=== PATIENT | male | born 1995 | race Hispanic/Latino ===

== ENCOUNTER 2018-11-14 20:00 | Emergency (ER) | payer SELFPAY ==
[2018-11-14] MEDS ORDERED: Bacitracin 500 Units/gm Oint Foilpak UD ONE (20:53)
--- NOTE | 2018-11-14 21:21 | C.PDOC ---
History Of Present Illness Patient is a 23 year old male who presents to the ED for intermittent nose bleeds for the past 5 days. He does not have a current nosebleed. Patient denies any cocaine use, nose picking, or other medical complaints at the present moment. Time Seen by Provider: 11/14/18 20:17 Chief Complaint (Nursing): ENT Problem History Per: Patient History/Exam Limitations: None Onset/Duration Of Symptoms: Days (5) Current Symptoms Are (Timing): Gone Past Medical History Reviewed: Historical Data, Nursing Documentation, Vital Signs Vital Signs: Last Vital Signs Temp 99.0 F 11/14/18 20:07 Pulse 74 11/14/18 20:07 Resp 16 11/14/18 20:07 BP 134/65 11/14/18 20:07 Pulse Ox 97 11/14/18 20:07 - Medical History PMH: Migraine Surgical History: No Surg Hx - [facility] Procedures APPLICATION OF SPLINT (10/10/13) TETANUS TOXOID ADMINIST (10/10/13) Family History: States: No Known Family Hx - Social History Hx Tobacco Use: No Hx Alcohol Use: Yes Hx Substance Use: No - Immunization History Hx Tetanus Toxoid Vaccination: No Hx Influenza Vaccination: No Hx Pneumococcal Vaccination: No Review Of Systems ENT: Positive for: Nose Discharge (blood) Physical Exam - Physical Exam Appears: Non-toxic, No Acute Distress Skin: No Rash Nose: Other (dried blood in anterior left nare ) Neurological/Psych: Oriented x3 ED Course And Treatment O2 Sat by Pulse Oximetry: 97 (on RA) Pulse Ox Interpretation: Normal Medical Decision Making Medical Decision Making: Nose was cleaned up. Appears irritated. Bacitracin applied. Patient instructed how to pinch nose to stop nose bleeding. Disposition Counseled Patient/Family Regarding: Diagnosis, Need For Followup - Disposition Referrals: Rashad Wyatt MD [Staff Provider] - Disposition: HOME/ ROUTINE Disposition Time: 21:16 Condition: GOOD Additional Instructions: No soplar la nariz. No coja la nariz ni ponga nada en la nariz. Use un poco de vaselina o ungento antobptico en un q-tip y frote suavemente el blanca inferior de la nariz 1-2 veces por da. Si la nariz comienza a sangrar nuevamente, apritelo firmemente por 10 minutos con la rodrigo inclinada hacia adelante. Seguimiento con el Dr. Wyatt. Do not blow nose. Do not pick nose or put anything in nose. Use some vaseline or antobiptic ointment on a q-tip and gently rub into bottom area of nose 1-2 times per day. If nose begins to bleed again, pinch closed firmly for 10 minutes with head bent forward. Follow up with Dr Wyatt. 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 - Scribe Statement The provider has reviewed the documentation as recorded by the Natalya Echols All medical record entries made by the Scribnate were at my direction and personally dictated by me. I have reviewed the chart and agree that the record accurately reflects my personal performance of the history, physical exam, medical decision making, and the department course for this patient. I have also personally directed, reviewed, and agree with the discharge instructions and disposition.
[2018-11-14 21:28] VITALS: BP 111/70; PULSE 60; RESP 18; TEMP 98.4
[2018-11-14 21:38] VITALS: O2SAT 97
== END 2018-11-14 21:28 | disposition home or self-care (01) ==
LOC: C.ER 20:00
DX: R04.0 Epistaxis (principal)